=== PATIENT | female | born 1975 | race Asian ===

== ENCOUNTER 2022-10-10 08:58 | Outpatient (CLI) | payer BC, OTHER ==
[2022-10-10 12:08] LABS: BASOPHILS # (AUTO) 0.1 10^3/uL (0.0-0.1); BASOPHILS % (AUTO) 0.9 %; EOSINOPHILS % (AUTO) 0.6 %; HGB - HEMOGLOBIN 13.2 g/dL (12.0-16.0); LYMPHOCYTES # (AUTO) 0.6 10^3/uL (1.5-3.5); LYMPHOCYTES % (AUTO) 9.8 %; MEAN CORPUSCULAR HEMOGLOBIN 27.7 pg (27.0-31.0); MEAN PLATELET VOLUME 10.6 fL (7.9-10.8); MONOCYTES # (AUTO) 0.5 10^3/uL (0.0-1.0); NEUTROPHILS # (AUTO) 5.3 10^3/uL (1.5-6.6); NEUTROPHILS % (AUTO) 81.4 %; PLT - PLATELET COUNT 269 10^3/uL (130-450); RED BLOOD COUNT 4.76 10^6/uL (4.20-5.40); RED CELL DISTRIBUTION WIDTH 12.9 % (12.0-15.0); WHITE BLOOD COUNT 6.5 x10^3/uL (4.8-10.8)
[2022-10-10 12:41] LABS: ALBUMIN 4.7 g/dL (3.2-5.5); ALBUMIN/GLOBULIN RATIO 1.1 (1.0-2.2); ALKALINE PHOSPHATASE 59 IU/L (42-121); ALT ALANINE AMINOTRANSFERASE 19 IU/L (10-60); AST ASPARTATE AMINOTRANSFERASE 21 IU/L (10-42); BILIRUBIN,TOTAL 1.8 mg/dL (0.2-1.0); BUN - BLOOD UREA NITROGEN 10 mg/dL (6-20); CARBON DIOXIDE - CO2 26 mmol/L (21-32); CHLORIDE 104 mmol/L (101-111); CHOL/HDL RATIO 4.6 (<4.4); CHOLESTEROL 195 mg/dL; CREATININE 0.6 mg/dL (0.4-1.0); GFR - MDRD 108 (>89); GLUCOSE 126 mg/dL (70-100); HDL CHOLESTEROL 42 mg/dL; LDL CHOLESTEROL,CALCULATED 135 mg/dL; LDL/HDL RATIO 3.2 (<4.4); POTASSIUM 3.5 mmol/L (3.5-5.0); SODIUM 135 mmol/L (135-145); TRIGLYCERIDES 88 mg/dL; VLDL CHOLESTEROL 18 mg/dL
[2022-10-10 12:48] LABS: THYROID STIMULATING HORMONE 0.51 uIU/mL (0.34-5.60)
[2022-10-10 12:50] LABS: FREE T4 (FREE THYROXINE) 0.95 ng/dL (0.58-1.64)
[2022-10-10 14:08] LABS: CRP - C-REACTIVE PROTEIN < 1.0 mg/dL (0-1.0)
== END 2022-10-10 08:59 | disposition home or self-care (01) ==
LOC: LAB.N 08:58
PROVIDERS: ATTEND Nurse Practitioner
DX: R53.83 Other fatigue (principal); Z13.220 Encounter for screening for lipoid disorders; E04.9 Nontoxic goiter, unspecified
CPT/HCPCS: 36415; 80053; 80061; 83721; 84439; 84443; 85025; 85651; 86140

== ENCOUNTER 2022-10-26 11:27 | Outpatient (CLI) | payer BC, OTHER ==
--- NOTE | 2022-10-26 17:50 | Ultrasound Report ---
PROCEDURE: Head or Neck Soft Tissue INDICATIONS: ENLARGED TYROID TECHNIQUE: Real-time scanning was performed of the thyroid gland, with image documentation. COMPARISON: None FINDINGS: Right: Thyroid lobe measures 7.5 x 2.1 x 2.2 cm, and is homogeneous in echotexture. Left: Thyroid lobe measures 7.0 x 1.9 x 2.3 cm, and is homogenous in echotexture. Isthmus: 4.4 mm thick. Nodule number: One Location: Right inferior Size: 6 x 5 mm cm. Composition: Solid (2 points). Echogenicity: Hyperechoic (1 point). Shape: wider than tall. Margins: Smooth (0 points). Echogenic foci: Macrocalcification (1 point). Total points: 4 ACR TI-RADS category: Moderately suspicious (4-6 points). IMPRESSION: Single category 4 nodule. Best practice guidelines suggest follow-up schedule as below ACR TI-RADS definitions and recommendations: TI-RADS 1 (benign): 0 points. FNA not needed. TI-RADS 2 (not suspicious): 2 points. FNA not needed. TI-RADS 3 (mildly suspicious): 3 points. "FNA if 2.5 cm or larger, follow up if 1.5 cm or larger (at 1, 3, and 5 years). TI-RADS 4 (moderately suspicious): 4-6 points. "FNA if 1.5 cm or larger, follow up if 1 cm or larger (at 1, 2, 3, and 5 years). TI-RADS 5 (highly suspicious): 7 points or more. "FNA if 1 cm or larger, follow up if 0.5 cm or larger (every year for 5 years). Reviewed by: Nikhil Leblanc MD on 10/26/2022 4:49 PM AKOLIVIA Approved by: Nikhil Leblanc MD on 10/26/2022 4:49 PM AKDT Station ID: [id number]
== END 2022-10-26 11:28 | disposition home or self-care (01) ==
LOC: DI 11:27
PROVIDERS: ATTEND Nurse Practitioner
DX: E04.1 Nontoxic single thyroid nodule (principal)

== ENCOUNTER 2022-11-21 11:30 | Outpatient (CLI) | payer BC, OTHER ==
--- NOTE | 2022-11-22 09:30 | Mammography Report ---
BILATERAL DIGITAL DIAGNOSTIC MAMMOGRAM 3D/2D: 11/21/2022 CLINICAL: Baseline exam. Intermittent pain in left breast. No prior exams were available for comparison. There are scattered areas of fibroglandular density in both breasts (category b / 25%-50% glandular t issue). There is a 0.9 cm oval equal density mass with a circumscribed margin in the left breast at 2 o'clock middle depth. This correlates to the area of reported pain. No other significant masses, calcifications, or other findings are seen in either breast. IMPRESSION: INCOMPLETE: NEEDS ADDITIONAL IMAGING EVALUATION The 0.9 cm oval equal density mass in the left breast is indeterminate. An ultrasound is recommended . Based on the Tyrer Cuzick model (a risk assessment model) the patients lifetime risk is 18.6% and he r 10 year risk is 3.9%. According to the ACR, ACS, and NCCN guidelines, an annual breast MRI exam antonio ng with mammogram is recommended if the patients lifetime risk is 20% or greater. This exam was interpreted at Station ID: [id number]. NOTE: For mammograms, a report in lay terms will be sent to the patient. Approximately 15% of breast malignancies will not be visualized mammographically. In the management of a palpable breast mass, a negative mammogram must not discourage biopsy of a clinically suspicious lesion. Electronically Signed By: Doron snyder/yaritza:11/21/2022 14:21:11 ACR BI-RADS Category 0: Incomplete 3340F PARENCHYMAL PATTERN: (A) - The breast(s) demonstrate(s) scattered fibroglandular densities. BI-RADS CATEGORY: (0) - 0 Ultrasound [id number] Immediate follow-up LATERALITY: (L)
--- NOTE | 2022-11-22 09:30 | Ultrasound Report ---
LIMITED ULTRASOUND OF LEFT BREAST: 11/21/2022 CLINICAL: Focal left breast pain. Comparison is made to exam dated: 11/21/2022 mammogram - [facility]. Color flow ultrasound of the left breast 2 o'clock region was performed. Benitez scale images of the r eal-time examination were reviewed. There is a 0.9 cm x 0.8 cm x 0.3 cm oval mass with a circumscribed margin in the left breast at 2 o'c lock middle depth 3 cm from the nipple. This oval mass is hypoechoic. This correlates to the report ed pain and with mammography findings. Color flow imaging demonstrates that there is no increase in vascularity. IMPRESSION: PROBABLY BENIGN The 0.9 cm x 0.8 cm x 0.3 cm oval mass in the left breast most likely is a complicated cyst or a fibr oadenoma and is probably benign. A follow-up left ultrasound in 6 months is recommended to demonstrate stability. This exam was interpreted at Station ID: [id number]. Electronically Signed By: Doron snyder/yaritza:11/21/2022 14:22:59 Ultrasound BI-RADS: 3 Probably benign BI-RADS CATEGORY: (3) - 3 Ultrasound [id number] 6 month follow-up LATERALITY: (L)
== END 2022-11-21 11:31 | disposition home or self-care (01) ==
LOC: DI 11:30
PROVIDERS: ATTEND Nurse Practitioner
DX: R92.8 Other abnormal and inconclusive findings on diagnostic imaging of breast (principal)

== ENCOUNTER 2023-07-06 09:24 | Outpatient (CLI) | payer BC, OTHER ==
--- NOTE | 2023-07-07 11:48 | Ultrasound Report ---
LIMITED ULTRASOUND OF LEFT BREAST: 07/06/2023 CLINICAL: Patient returns for sonographic evaluation of left breast mass. Comparison is made to exams dated: 11/21/2022 ultrasound and 11/21/2022 mammogram - [facility]. Color flow and real-time ultrasound of the left breast 2 o'clock region were performed. Benitez scale i mages of the real-time examination were reviewed. There is a 0.8 cm x 0.8 cm x 0.5 cm oval mass with a circumscribed margin in the left breast at 2 o'c lock middle depth 3 cm from the nipple. This oval mass is hypoechoic. This abnormality is not signi ficantly changed and correlates to the reported pain and with mammography findings. Color flow imagi ng demonstrates that there is no increase in vascularity. IMPRESSION: PROBABLY BENIGN Stable 0.8 cm mass in the left breast most likely is a fibroadenoma or complicated cyst and is probab ly benign. A follow-up ultrasound in 6 months is recommended. Patient will be due for mammogram at that time. Exam findings were conveyed to the patient. This exam was interpreted at Station ID: [id number]. Electronically Signed By: Niraj Katz M.D. slc/:07/06/2023 10:30:53 Ultrasound BI-RADS: 3 Probably benign BI-RADS CATEGORY: (3) - 3 Mammo and [place] [id number] 6 month follow-up LATERALITY: (B)
== END 2023-07-06 09:25 | disposition home or self-care (01) ==
LOC: DI 09:24
PROVIDERS: ATTEND Nurse Practitioner
DX: R92.8 Other abnormal and inconclusive findings on diagnostic imaging of breast (principal); N63.21 Unspecified lump in the left breast, upper outer quadrant

== ENCOUNTER 2023-12-26 11:38 | Outpatient (CLI) | payer BC, OTHER ==
--- NOTE | 2023-12-27 09:36 | Ultrasound Report ---
LIMITED ULTRASOUND OF LEFT BREAST: 12/26/2023 CLINICAL: Patient returns for a 6 month follow up of the left breast. Comparison is made to exams dated: 07/06/2023 ultrasound, 11/21/2022 ultrasound, [facility] Color flow and real-time ultrasound of the left breast 2 o'clock region were performed. Benitez scale images of the real-time examination were reviewed. There is a 0.8 cm x 0.8 cm x 0.5 cm oval mass with a circumscribed margin in the left breast at 2 o'c lock middle depth 3 cm from the nipple. This oval mass is hypoechoic. This abnormality is not signi ficantly changed. Color flow imaging demonstrates that there is no increase in vascularity. IMPRESSION: INCOMPLETE: NEEDS ADDITIONAL IMAGING EVALUATION The 0.8 cm x 0.8 cm x 0.5 cm oval mass in the left breast most likely is a complicated cyst or a fibr oadenoma and is probably benign. Patient is due for bilateral mammograms to evaluate for mammographic stability. Due to a scheduling e rror, mammograms were not completed on the day of the ultrasound exam, and the patient will be schedu led to return at the earliest convenience. This exam was interpreted at Station ID: [id number]. Electronically Signed By: Doron Zuniga M.D. ar/:12/26/2023 14:48:17 Ultrasound BI-RADS: 0 Indeterminate BI-RADS CATEGORY: (0) - 0 RECOMMENDATION: (ADDMAM) - Recommend additional mammographic views. [id number] Immediate follow-up LATERALITY: (B)
== END 2023-12-26 11:39 | disposition home or self-care (01) ==
LOC: DI 11:38
PROVIDERS: ATTEND Nurse Practitioner
DX: N63.21 Unspecified lump in the left breast, upper outer quadrant (principal)

== ENCOUNTER 2024-01-25 08:30 | Outpatient (CLI) | payer BC, OTHER ==
--- NOTE | 2024-01-26 09:26 | Mammography Report ---
BILATERAL DIGITAL DIAGNOSTIC MAMMOGRAM 3D/2D: 01/25/2024 CLINICAL: Patient returns for a 6 month follow up of the left breast, due for bilateral exam. Comparison is made to exams dated: 12/26/2023 ultrasound, 07/06/2023 ultrasound, 11/21/2022 ultrasound , and 11/21/2022 mammogram - [facility]. There are scattered areas of fibroglandular density in both breasts (category b / 25%-50% glandular t issue). There is a stable 0.9 cm oval mass with a circumscribed margin in the left breast at 2 o'clock middle depth. No other significant masses, calcifications, or other findings are seen in either breast. IMPRESSION: INCOMPLETE: NEEDS ADDITIONAL IMAGING EVALUATION The stable 0.9 cm oval mass in the left breast is probably benign, stable also on recent ultrasound. 6month followup ultasound is recommended. Bilateral prominent axillary lymph nodes are seen, incidental, slightly larger than prior. US recomme nded. Based on the Tyrer Cuzick model (a risk assessment model) the patient's lifetime risk is 18.9% and he r 10 year risk is 4.2%. According to the ACR, ACS, and NCCN guidelines, an annual breast MRI exam antonio ng with mammogram is recommended if the patient's lifetime risk is 20% or greater. This exam was interpreted at Station ID: [id number]. NOTE: For mammograms, a report in lay terms will be sent to the patient. Approximately 15% of breast malignancies will not be visualized mammographically. In the management of a palpable breast mass, a negative mammogram must not discourage biopsy of a clinically suspicious lesion. Electronically Signed By: Derek Gallagher M.D. lc/:01/25/2024 10:39:00 Entry: ka - 01/26/2024 09:12:33 ACR BI-RADS Category 0: Incomplete 3340F PARENCHYMAL PATTERN: (A) - The breast(s) demonstrate(s) scattered fibroglandular densities. BI-RADS CATEGORY: (0) - 0 Ultrasound [id number] Immediate follow-up LATERALITY: (B)
--- NOTE | 2024-01-26 09:26 | Ultrasound Report ---
LIMITED ULTRASOUND OF LEFT BREAST: 01/25/2024 CLINICAL: Patient returns for a 6 month follow up of the left breast, due for bilateral exam. Comparison is made to exams dated: 01/25/2024 mammogram, 12/26/2023 ultrasound, 07/06/2023 ultrasound, 11/21/2022 ultrasound, and 11/21/2022 mammogram - [facility]. Color flow and real-time ultrasound of the left breast were performed. Benitez scale images of the jason l-time examination were reviewed. Prominent axillary lymph nodes with overall normal morphology and no pathologic enlargement by size c riteria, benign, patient reports recent immunization. IMPRESSION: PROBABLY BENIGN Prominent axillary lymph nodes with overall normal morphology and no pathologic enlargement by size c riteria, benign, patient reports recent immunization. A follow-up ultrasound in 6 months is recommended to demonstrate stability of the left breast finding at 2:00, most recently described on 12/26/2023. This exam was interpreted at Station ID: [id number]. Electronically Signed By: Derek Gallagher M.D. lc/:01/25/2024 10:43:55 Ultrasound BI-RADS: 3 Probably benign BI-RADS CATEGORY: (3) - 3 Ultrasound [id number] 6 month follow-up LATERALITY: (B)
--- NOTE | 2024-01-26 09:26 | Ultrasound Report ---
LIMITED ULTRASOUND OF RIGHT BREAST: 01/25/2024 CLINICAL: Patient returns for a 6 month follow up of the left breast, due for bilateral exam. Comparison is made to exams dated: 01/25/2024 ultrasound, 01/25/2024 mammogram, 12/26/2023 ultrasound, 07/06/2023 ultrasound, 11/21/2022 ultrasound, and 11/21/2022 mammogram - [facility]. Color flow and real-time ultrasound of the right breast were performed. Benitez scale images of the jason l-time examination were reviewed. Prominent axillary lymph nodes with overall normal morphology and no pathologic enlargement by size c riteria, benign, patient reports recent immunization. IMPRESSION: BENIGN Prominent axillary lymph nodes with overall normal morphology and no pathologic enlargement by size c riteria, benign, patient reports recent immunization. This exam was interpreted at Station ID: [id number]. Electronically Signed By: Derek Gallagher M.D. lc/:01/25/2024 10:43:07 letter sent: No_Letter Ultrasound BI-RADS: 2 Benign BI-RADS CATEGORY: (2) - 2 Unspecified - other recall n/a LATERALITY: (B)
== END 2024-01-25 08:31 | disposition home or self-care (01) ==
LOC: DI 08:30
PROVIDERS: ATTEND Nurse Practitioner
DX: R92.323 Mammographic fibroglandular density, bilateral breasts (principal); R59.0 Localized enlarged lymph nodes